=== PATIENT | female | born 1995 | race Caucasian/White ===

== ENCOUNTER 2019-11-25 14:30 | Emergency (ER) | payer SELFPAY ==
--- NOTE | 2019-11-25 15:12 | ER ---
Nurse's Notes [facility] Name: Gema Lovell Age: 24 yrs Sex: Female : 1995 Arrival Date: 11/25/2019 Time: 14:36 Bed 8 Private MD: Diagnosis: Urinary tract infection, site not specified Presentation: 11/24 14:52 Chief complaint: Patient states: intermittent burning with urination x 1 month that has ss gotten more persistent over the past week now with suprapubic discomfort. Coronavirus screen: Client denies travel out of the [place] in the last 14 days. Ebola Screen: Patient denies exposure to infectious person. Patient denies travel to an Ebola-affected area in the 21 days before illness onset. Initial Sepsis Screen: Does the patient meet any 2 criteria? No. Patient's initial sepsis screen is negative. Does the patient have a suspected source of infection? Yes: Dysuria/Frequency/Urgency/UTI. Risk Assessment: Do you want to hurt yourself or someone else? Patient reports no desire to harm self or others. Onset of symptoms was October 2019. 14:52 Method Of Arrival: Ambulatory ss 14:52 Acuity: KEHINDE 4 ss Historical: - Allergies: 14:55 PENICILLINS; ss 14:55 Phenergan; ss - Home Meds: 14:55 None [Active]; ss - PMHx: 14:55 Asthma; ss - PSHx: 14:55 None; ss - Immunization history:: Adult Immunizations up to date. - Social history:: Smoking status: Patient denies any tobacco usage or history of. Screenin:04 Abuse screen: Denies threats or abuse. Nutritional screening: No deficits noted. em Tuberculosis screening: No symptoms or risk factors identified. Fall Risk None identified. Assessment: 15:19 General: Appears in no apparent distress. comfortable, Behavior is calm, cooperative, em appropriate for age, Denies. Pain: Complains of pain in pelvis Pain currently is 2 out of 10 on a pain scale. Neuro: Level of Consciousness is awake, alert, obeys commands, Oriented to person, place, time, situation, Appropriate for age. GI: Abdomen is flat. : Reports burning with urination, since for 1 week. Derm: Skin is intact, is healthy with good turgor, Skin is pink, warm \T\ dry. Musculoskeletal: Capillary refill < 3 seconds, Range of motion: intact in all extremities. Vital Signs: 14:52 Resp 14; Temp 97.9(TE); Weight 74.84 kg; Height 5 ft. 8 in. (172.72 cm); Pain 2/10; 14:57 BP 111 / 78; Pulse 86; Pulse Ox 99% on R/A; dh3 14:52 Body Mass Index 25.09 (74.84 kg, 172.72 cm) ED Course: 14:36 Patient arrived in ED. mr 14:48 Victorino Diane PA is PHCP. [facility] 14:48 Trung Maguire MD is Attending Physician. [facility] 14:52 Erich Davies, RN is Primary Nurse. em 14:54 Triage completed. ss 14:55 Arm band placed on right wrist. 15:04 Patient has correct armband on for positive identification. Call light in reach. em 15:20 No provider procedures requiring assistance completed. Patient did not have IV access em during this emergency room visit. Administered Medications: No medications were administered Outcome: 15:11 Discharge ordered by MD. [facility] 15:20 Discharged to home ambulatory, with family. em 15:20 Condition: good 15:20 Discharge instructions given to patient, family, Instructed on discharge instructions, follow up and referral plans. medication usage, Demonstrated understanding of instructions, follow-up care, medications, Prescriptions given X 1. 15:20 Patient left the ED. em Signatures: Victorino Diane PA PA jmm RiveraCatherine mr Erich Davies, RN LADONNA Maegan Smith RN RN Valentine Zaman [facility]
--- NOTE | 2019-11-25 15:12 | EDPHYS ---
Physician Documentation [facility] Name: Gema Lovell Age: 24 yrs Sex: Female : 1995 Arrival Date: 11/25/2019 Time: 14:36 Bed 8 Private MD: ED Physician Trung Maguire HPI: 11/24 15:01 This 24 yrs old Female presents to ER via Ambulatory with complaints of jmm Abdominal Pain, Urinary Problem. 15:01 Onset: The symptoms/episode began/occurred gradually, 2 week(s) ago. The symptoms jmm radiate to pelvis. Associated signs and symptoms: Pertinent negatives: diarrhea, fever, vomiting. The symptoms are described as achy, crampy. This is a 24 year old female with a history of asthma that presents to the ED with complaints of lower abdominal pain, mainly in the suprapubic region. Patient states she initially developed urinary complaints of burning and increased frequency around 2 weeks ago. Patient states symptoms had resolved but returned recently. Patient also complains of pain which radiates from the suprapubic region to the lower back. Denies abnormal vaginal discharge. LMP 11/05/2019. Historical: - Allergies: 14:55 PENICILLINS; ss 14:55 Phenergan; ss - Home Meds: 14:55 None [Active]; ss - PMHx: 14:55 Asthma; ss - PSHx: 14:55 None; ss - Immunization history:: Adult Immunizations up to date. - Social history:: Smoking status: Patient denies any tobacco usage or history of. ROS: 15:01 Constitutional: Negative for fever, chills, and weight loss, Cardiovascular: Negative jmm for chest pain, palpitations, and edema, Respiratory: Negative for shortness of breath, cough, wheezing, and pleuritic chest pain. 15:01 Back: Positive for radiated pain. 15:01 : Positive for urinary symptoms. 15:01 All other systems are negative. Exam: 15:01 Constitutional: This is a well developed, well nourished patient who is awake, alert, jmm and in no acute distress. Head/Face: atraumatic. Eyes: EOMI, no conjunctival erythema appreciated ENT: Moist Mucus Membranes Neck: Trachea midline, Supple Chest/axilla: Normal chest wall appearance and motion. Cardiovascular: Regular rate and rhythm. No edema appreciated Respiratory: Normal respirations, no respiratory distress appreciated 15:01 Back: Normal ROM Skin: General appearance color normal MS/ Extremity: Moves all extremities, no obvious deformities appreciated, no edema noted to the lower extremities Neuro: Awake and alert, normal gait Psych: Behavior is normal, Mood is normal, Patient is cooperative and pleasant 15:01 Abdomen/GI: Inspection: abdomen appears normal, Bowel sounds: normal, Palpation: soft, mild abdominal tenderness, in the suprapubic area, Indicators: McBurney's point is not tender, Starr's sign is negative. Vital Signs: 14:52 Resp 14; Temp 97.9(TE); Weight 74.84 kg; Height 5 ft. 8 in. (172.72 cm); Pain 2/10; ss 14:57 BP 111 / 78; Pulse 86; Pulse Ox 99% on R/A; dh3 14:52 Body Mass Index 25.09 (74.84 kg, 172.72 cm) ss MDM: 15:01 Patient medically screened. [facility] 15:10 Data reviewed: vital signs, nurses notes. Counseling: I had a detailed discussion with patience the patient and/or guardian regarding: the historical points, exam findings, and any diagnostic results supporting the discharge/admit diagnosis, lab results, the need for outpatient follow up, to return to the emergency department if symptoms worsen or persist or if there are any questions or concerns that arise at home. ED course: Patient is alert and non toxic in appearance in the ED. Patient most likely has UTI due to description of symptoms. I currently do not suspect pyelonephritis. Patient is advised to follow up with pcp and otherwise given strict return precautions. Patient understood and agrees with the plan of care. . 11/24 15:07 Order name: Urine Dipstick--Ancillary (enter results) mt 11/24 15:07 Order name: Urine --Ancillary (enter results) mt Administered Medications: No medications were administered Disposition: 18:54 Co-signature as Attending Physician, Trugn Maguire MD I agree with the assessment and kdr plan of care. Disposition: 11/25/19 15:11 Discharged to Home. Impression: Urinary tract infection, site not specified. - Condition is Stable. - Discharge Instructions: Urinary Tract Infection, Adult. - Prescriptions for Bactrim DS 800- 160 mg Oral Tablet - take 1 tablet by ORAL route every 12 hours for 7 days; 14 tablet. - Medication Reconciliation Form, Thank You Letter, Antibiotic Education, Prescription Opioid Use form. - Follow up: Private Physician; When: 2 - 3 days; Reason: Recheck today's complaints, Continuance of care, Re-evaluation by your physician. Signatures: Dispatcher [employer] Trung Hardy MD MD kdr Mickail, Joel, PA PA jmm Munoz, Edgar, RN RN em Smirch, Shelby, RN RN ss Corrections: (The following items were deleted from the chart) 15:20 15:11 11/25/2019 15:11 Discharged to Home. Impression: Urinary tract infection, site em not specified. Condition is Stable. Forms are Medication Reconciliation Form, Thank You Letter, Antibiotic Education, Prescription Opioid Use. Follow up: Private Physician; When: 2 - 3 days; Reason: Recheck today's complaints, Continuance of care, Re-evaluation by your physician. patience
[2019-11-25 15:38] LABS: Urine Blood NEGATIVE (NEG); Urine Glucose NEGATIVE (NEG); Urine Protein NEGATIVE (NEG); Urine Specific Gravity 1.015 (1.005-1.030)
[2019-11-25 15:53] VITALS: TEMP 97.9
[2019-11-25 15:54] VITALS: BP 111/78; O2SAT 99
== END 2019-11-25 15:20 | disposition home or self-care (01) ==
LOC: ER 14:30
DX: N39.0 Urinary tract infection, site not specified (principal); Z88.0 Allergy status to penicillin; Z88.8 Allergy status to other drugs, medicaments and biological substances
CPT/HCPCS: 81003; 81025; 99282